=== PATIENT | female | born 1970 | race Hispanic/Latino ===

== ENCOUNTER 2020-05-17 19:44 | Emergency (ER) | payer OTHER ==
--- OUTSIDE RECORDS SUMMARY | 2020-05-17 19:47 | XMS REPORT | Continuity of Care Document ---
:1970 Author Organization [facility] t Address [address] [place] [place] [address] Care Team Providers Name Role Phone Lab, Fam Pob I Attending Clinician Unavailable Doctor Unassigned, Name Attending Clinician Unavailable Diana Jackson MD Attending Clinician Shannan TAYLOR Attending Clinician Lab, Covid Attending Clinician Unavailable Only, Test Attending Clinician Unavailable Problems This patient has no known problems. Allergies, Adverse Reactions, Alerts This patient has no known allergies or adverse reactions. Medications This patient has no known medications. Procedures This patient has no known procedures. Encounters Start End Encounter Admission Attending Care Care Encounter Source Date/Time Date/Time Type Type Clinicians Facility Department ID 2020-03-03 2020-03-03 Laboratory Lab, [facility] [id number] 17:22:47 17:42:47 Only Fam Pob I Health [id number] [place] [id number] Sebast[place]án [id number] nal [address] 2020-02-13 2020-02-13 Outpatient [facility] [id number] [facility] 2020-01-30 2020-01-30 Outpatient [facility] [id number] [facility] 2020-01-11 2020-01-11 [facility] [id number] [facility] 2020-01-11 2020-01-11 Orders Doctor LEONIDAS [id number] 00:00:00 00:00:00 Only Unassigned, KATIE [id number] [place] [facility] [id number] 2020-01-10 2020-01-10 Out[facility] [id number] [facility] 2019-12-27 2019-12-27 Out[facility] [id number] [facility] 2019-10-30 2019-10-[id number] 00:00:00 00:00:00 Management Sophy Jackson HEALTH [id number] [facility] [id number] 2019-10-25 2019-10-[address]840.114 [id number] 00:00:00 00:00:00 Sophy Jackson HEALTH [id number] [facility] [id number] 2019-10-15 2019-10-[address]840.114 [id number] 10:25:00 23:59:00 Encounter Sophy Jackson [facility]ALTH [id number] [facility] [id number] 2019-10-15 2019-10-15 [place] [id number] 08:12:00 10:24:00 Encounter Sophy Jackson HEALTH [id number] [facility] [id number] 2019-10-15 2019-10-15 [facility] [id number] 08:00:00 08:11:00 Encounter Y [facility] [id number] CLINICS [id number] 2019-10-13 2019-10-13 Telephone Lab, Pcp [facility] [id number] 00:00:00 00:00:00 Covid PRIMARY [id number] CARE [id number] [facility] [id number] 2019-10-11 2019-10-11 Laboratory Only, Adc [facility] [id number] 08:28:23 09:19:11 Only Test [place] [id number] [place] [id number] [place] [id number] Results This patient has no known results.
[2020-05-17] MEDS ORDERED: NA CHLORIDE 0.9% 2,000 ML ONE (20:25)
[2020-05-17] MEDS ORDERED: CEFTRIAXONE/SWI 1gm 1 GM/10 ML SYR ONE (20:25)
[2020-05-17 20:30] LABS: Basophils % 0.4 % (0-1.3); Hematocrit 37.8 % (36.0-45.0); Lymphocytes % 9.8 % (15.3-44.8); MPV 9.2 fL (7.6-11.3); RBC Red Blood Cell Count 4.96 M/uL (3.86-4.86)
[2020-05-17 20:32] LABS: Urine Blood 1+ (NEG); Urine Glucose NEGATIVE (NEG); Urine Protein NEGATIVE (NEG); Urine pH 5.5 (5.0-7.0)
[2020-05-17 20:53] LABS: ALT/SGPT 37 U/L (12-78); Albumin 3.9 g/dL (3.4-5.0); Alkaline Phosphatase 94 U/L (45-117); BUN Blood Urea Nitrogen 13 mg/dL (7-18); Bicarbonate 25 mmol/L (21-32); Bilirubin Direct < 0.1 mg/dL (0-0.2); Bilirubin Total 0.3 mg/dL (0.2-1.0); Glucose Level 173 mg/dL (74-106); Lipase 70 U/L (73-393); Sodium Level 140 mmol/L (136-145)
[2020-05-17 20:59] LABS: Blood Morphology Comment NOT SEEN (NOT SEEN); Platelet Estimate ADEQ
[2020-05-17 21:02] LABS: AST/SGOT 28 U/L (15-37); Potassium 3.7 mmol/L (3.5-5.1)
[2020-05-17] MEDS ORDERED: FAMOTIDINE 20 MG/2 ML VIAL IV ONE (21:47)
[2020-05-17] MEDS ORDERED: DIPHENHYDRAMINE 50 MG/ML VIAL ONE (21:47)
[2020-05-17] MEDS ORDERED: METHYLPREDNISOLONE 125 MG INJ ONE (21:47)
[2020-05-17] MEDS ORDERED: ACETAMINOPHEN 500 MG TAB ONE (22:04)
[2020-05-17] MEDS ORDERED: IBUPROFEN 400 MG TAB ONE (22:04)
--- NOTE | 2020-05-17 23:18 | ER ---
Nurse's Notes [facility] Name: Pipe Aleman Age: 49 yrs Sex: Female : 1970 Arrival Date: 05/17/2020 Time: 19:49 Bed 15 Private MD: Diagnosis: Enteritis;Infectious mononucleosis Presentation: 05/17 20:02 Chief complaint: Patient's son or daughter states: she has lower abdominal pain and mg2 painful urination started today \T\ 5 pm. none taken for fever. Coronavirus screen: Client denies travel out of the [place] in the last 14 days. Ebola Screen: No symptoms or risks identified at this time. Initial Sepsis Screen: Does the patient meet any 2 criteria? Temp <36.0*C (96.8*F)) or > 38.3*C (100.9*F). HR > 90 bpm. Does the patient have a suspected source of infection? Yes: Dysuria/Frequency/Urgency/UTI. Risk Assessment: Do you want to hurt yourself or someone else? Patient reports no desire to harm self or others. Onset of symptoms was May 17, 2020. 20:02 Method Of Arrival: Ambulatory mg2 20:02 Acuity: CHRIST 3 mg2 Historical: - Allergies: 20:05 No Known Allergies; mg2 - Home Meds: 20:05 bp medicine [Active]; mg2 - PMHx: 20:05 Hypertension; mg2 - PSHx: 20:05 ; mg2 - Immunization history:: Flu vaccine status is unknown. covid vaccine done. - Social history:: Smoking status: Patient denies any tobacco usage or history of. Screenin:05 Abuse screen: Denies threats or abuse. Denies injuries from another. Nutritional mg2 screening: No deficits noted. Tuberculosis screening: No symptoms or risk factors identified. Assessment: 20:00 General: code sepsis called. mg2 20:00 General: Appears in no apparent distress. Behavior is calm, cooperative, appropriate ll2 for age. Pain: Complains of pain in back. Neuro: Level of Consciousness is awake, alert, obeys commands, Oriented to person, place, time, situation. Cardiovascular: Patient's skin is warm and dry. Respiratory: Airway is patent Respiratory effort is even, unlabored, Respiratory pattern is regular, symmetrical. GI: Bowel sounds Abd is soft. : Reports urinary frequency. EENT: No signs and/or symptoms were reported regarding the EENT system. Derm: Skin is intact, is healthy with good turgor, Skin is dry, Skin is pink, warm \T\ dry. Musculoskeletal: Circulation, motion, and sensation intact. Range of motion: intact in all extremities. 21:00 Reassessment: Patient and/or family updated on plan of care and expected duration. Pain ll2 level reassessed. Patient is alert, oriented x 3, equal unlabored respirations, skin warm/dry/pink. 22:00 Reassessment: Patient and/or family updated on plan of care and expected duration. Pain ll2 level reassessed. Patient is alert, oriented x 3, equal unlabored respirations, skin warm/dry/pink. Vital Signs: 20:00 BP 138 / 85; Pulse 155; Resp 20; Temp 103.2; Pulse Ox 100% on R/A; ll2 20:02 BP 138 / 85; Pulse 150; Resp 18; Temp 102.7; Pulse Ox 100% on R/A; Weight 72.12 kg; mg2 Height 5 ft. 1 in. (154.94 cm); Pain 6/10; 21:00 BP 140 / 69; Pulse 151; Resp 22; Pulse Ox 100% on R/A; ll2 22:00 BP 136 / 77; Pulse 120; Resp 18; Temp 100.8; Pulse Ox 100% on R/A; ll2 20:02 Body Mass Index 30.04 (72.12 kg, 154.94 cm) mg2 ED Course: 19:49 Patient arrived in ED. cf2 19:51 Mohit Magana PA is PHCP. [facility] 19:52 Brendon Singleton MD is Attending Physician. jmm 20:04 Triage completed. mg2 20:05 Arm band placed on. mg2 20:05 Inserted saline lock: 20 gauge in left forearm, using aseptic technique. Blood mg2 collected. 20:28 Patient has correct armband on for positive identification. mg2 20:28 No provider procedures requiring assistance completed. mg2 21:32 Notified Nurse Practitioner and/or Physician Tint Layer of a critical lab result(s), lp1 Lactate 3.3. 21:43 Ana Maria Burns RN is Primary Nurse. ll2 21:52 Urine Dipstick--Ancillary (enter results) Sent. ll2 21:52 Flu Sent. ll2 21:53 Strep Sent. ll2 21:54 [place] Screen Profile Sent. ll2 22:22 CT Chest, Abdomen, Pelvis - W/Contrast In Process Unspecified. EDMS 23:29 IV discontinued, intact, bleeding controlled, No redness/swelling at site. Pressure ll2 dressing applied. Administered Medications: 20:05 Drug: NS 0.9% (30 ml/kg) 30 ml/kg Route: IV; Rate: bolus; Site: left forearm; mg2 20:28 Drug: Rocephin 1 grams Route: IV; Rate: calculated rate; Site: left forearm; mg2 21:43 Drug: diphenhydrAMINE 50 mg Route: IVP; Site: left antecubital; ll2 21:43 Drug: Pepcid 20 mg Route: IVP; Site: left antecubital; ll2 21:44 Drug: SOLU-Medrol 125 mg Route: IVP; Site: left antecubital; ll2 21:45 Drug: Tylenol 1000 mg Route: PO; ll2 21:45 Drug: Motrin 400 mg Route: PO; ll2 Outcome: 23:17 Discharge ordered by MD. tricia 23:28 Discharged to home ambulatory. ll2 23:28 Condition: stable 23:28 Discharge instructions given to patient, Instructed on discharge instructions, follow up and referral plans. medication usage, Demonstrated understanding of instructions, follow-up care, medications, Prescriptions given X 1. 23:29 Patient left the ED. ll2 Addendum: 05/21/2020 16:40 Addendum: Culture Results: Positive urine culture. Pt was notified of positive culture a a5 [id number], pt to follow-up with PCP and GI doctor. Patient was not prescribed antibiotics at discharge. Report given to BEVERLY for further evaluation and then to barker operator for follow up with patient. Signatures: Dispatcher [employer] EDMS Mohit Magana PA PA jmm Calderon, Audri, RN RN aa5 Iris Mcclure RN RN lp1 Handy Murguia RN RN mg2 Jeffrey Harrison cf2 Ana Maria Burns RN RN ll2
--- NOTE | 2020-05-17 23:18 | EDPHYS ---
Physician Documentation [facility] Name: Pipe Aleman Age: 49 yrs Sex: Female : 1970 Arrival Date: 05/17/2020 Time: 19:49 Bed 15 Private MD: ED Physician Brendon Singleton HPI: 05/17 20:08 This 49 yrs old Female presents to ER via Ambulatory with complaints of jmm Abdominal Pain, Pain With Urination. 20:08 The patient presents with abdominal pain in the lower abdomen. Onset: The jmm symptoms/episode began/occurred today. The symptoms do not radiate. Associated signs and symptoms: Pertinent positives: dysuria, fever, Pertinent negatives: nausea and vomiting. The symptoms are described as achy. Modifying factors: The symptoms are alleviated by nothing, the symptoms are aggravated by nothing. This is a 49 year old female with a history fo htn that presents to the ED with complaints of suprapubic abdominal pain beginning today around 5 pm along with dysuria. . Historical: - Allergies: 20:05 No Known Allergies; mg2 - Home Meds: 20:05 bp medicine [Active]; mg2 - PMHx: 20:05 Hypertension; mg2 - PSHx: 20:05 ; mg2 - Immunization history:: Flu vaccine status is unknown. covid vaccine done. - Social history:: Smoking status: Patient denies any tobacco usage or history of. ROS: 20:08 Constitutional: Positive for body aches, fatigue, fever. jmm 20:08 Abdomen/GI: Positive for abdominal pain. 20:08 Back: Positive for flank pain, on the right. 20:08 All other systems are negative. Exam: 20:08 Constitutional: This is a well developed, well nourished patient who is awake, alert, jmm and in no acute distress. Head/Face: atraumatic. Eyes: EOMI, no conjunctival erythema appreciated ENT: Moist Mucus Membranes Neck: Trachea midline, Supple Chest/axilla: Normal chest wall appearance and motion. Cardiovascular: Regular rate and rhythm. No edema appreciated Respiratory: Normal respirations, no respiratory distress appreciated Abdomen/GI: Non distended, soft Back: Normal ROM Skin: General appearance color normal MS/ Extremity: Moves all extremities, no obvious deformities appreciated, no edema noted to the lower extremities Neuro: Awake and alert, normal gait Psych: Behavior is normal, Mood is normal, Patient is cooperative and pleasant Vital Signs: 20:00 BP 138 / 85; Pulse 155; Resp 20; Temp 103.2; Pulse Ox 100% on R/A; ll2 20:02 BP 138 / 85; Pulse 150; Resp 18; Temp 102.7; Pulse Ox 100% on R/A; Weight 72.12 kg; mg2 Height 5 ft. 1 in. (154.94 cm); Pain 6/10; 21:00 BP 140 / 69; Pulse 151; Resp 22; Pulse Ox 100% on R/A; ll2 22:00 BP 136 / 77; Pulse 120; Resp 18; Temp 100.8; Pulse Ox 100% on R/A; ll2 20:02 Body Mass Index 30.04 (72.12 kg, 154.94 cm) mg2 MDM: 20:07 Patient medically screened. [facility] 23:14 Data reviewed: vital signs, nurses notes. Counseling: I had a detailed discussion with tricia the patient and/or guardian regarding: the historical points, exam findings, and any diagnostic results supporting the discharge/admit diagnosis, lab results, radiology results, the need for outpatient follow up, to return to the emergency department if symptoms worsen or persist or if there are any questions or concerns that arise at home. Refusal of service: The patient/guardian displays adequate decision making capability and despite a detailed discussion of alternatives, benefits, risks, and consequences refuses: Admission to the hospital for further work-up and treatment. 05/17 20:03 Order name: Basic Metabolic Panel; Complete Time: 21:17 [facility] 05/17 20:03 Order name: CBC with Diff; Complete Time: 21:17 [facility] 05/17 20:03 Order name: Hepatic Function; Complete Time: 21:17 [facility] 05/17 20:03 Order name: Lipase; Complete Time: 21:17 [facility] 05/17 20:03 Order name: Blood Culture Adult (2) [facility] 05/17 20:04 Order name: Urine Culture [facility] 05/17 20:04 Order name: Urine Culture [facility] 05/17 20:28 Order name: Urine --Ancillary (enter results) [facility] 05/17 20:28 Order name: Urine Dipstick--Ancillary (enter results) tt 05/17 20:28 Order name: Urine --Ancillary; Complete Time: 20:34 [facility] 05/17 20:28 Order name: Urine Dipstick-Ancillary; Complete Time: 20:34 [facility] 05/17 20:31 Order name: Flu [facility] 05/17 20:31 Order name: Strep [facility] 05/17 20:31 Order name: CT Chest, Abdomen, Pelvis - W/Contrast [facility] 05/17 20:31 Order name: [place] Screen Profile [facility] 05/17 20:31 Order name: Procalcitonin; Complete Time: 21:17 [facility] 05/17 20:31 Order name: Lactate; Complete Time: 21:33 [facility] 05/17 20:32 Order name: Group A Streptococcus Rapid Sc; Complete Time: 22:07 [facility] 05/17 20:32 Order name: [place] Screen; Complete Time: 20:50 [facility] 05/17 20:34 Order name: Manual Differential; Complete Time: 21:17 [facility] 05/17 22:00 Order name: Throat Culture [facility] 05/17 20:03 Order name: IV Saline Lock; Complete Time: 20:28 [facility] 05/17 20:03 Order name: Labs collected and sent; Complete Time: 20:28 [facility] 05/17 20:04 Order name: Urine Dipstick-Ancillary (obtain specimen); Complete Time: 20:27 [facility] Administered Medications: 20:05 Drug: NS 0.9% (30 ml/kg) 30 ml/kg Route: IV; Rate: bolus; Site: left forearm; mg2 20:28 Drug: Rocephin 1 grams Route: IV; Rate: calculated rate; Site: left forearm; mg2 21:43 Drug: diphenhydrAMINE 50 mg Route: IVP; Site: left antecubital; ll2 21:43 Drug: Pepcid 20 mg Route: IVP; Site: left antecubital; ll2 21:44 Drug: SOLU-Medrol 125 mg Route: IVP; Site: left antecubital; ll2 21:45 Drug: Tylenol 1000 mg Route: PO; ll2 21:45 Drug: Motrin 400 mg Route: PO; ll2 Disposition: 05/18 06:53 Co-signature as Attending Physician, Brendon Singleton MD. [email or web address] Disposition: 05/17/20 23:17 Discharged to Home. Impression: Enteritis, Infectious mononucleosis. - Condition is Stable. - Discharge Instructions: Infectious Mononucleosis, Viral Gastroenteritis, Adult. - Prescriptions for Bentyl 20 mg Oral Tablet - take 2 tablet by ORAL route every 6 hours As needed; 40 tablet. - Medication Reconciliation Form, Thank You Letter, Antibiotic Education, Prescription Opioid Use form. - Follow up: Private Physician; When: 2 - 3 days; Reason: Recheck today's complaints, Continuance of care, Re-evaluation by your physician. Signatures: Dispatcher [employer] EDIN Mohit Magana PA PA jmm Gardose, Michele, RN RN mg2 Ana Maria Burns RN RN ll2 Brendon Singleton MD MD [email or web address] Corrections: (The following items were deleted from the chart) 05/17 22:49 20:32 Influenza Screen (A ordered. [facility] EDIN 22:50 20:32 CORONAVIRUS ordered. [facility] 23:29 23:17 05/17/2020 23:17 Discharged to Home. Impression: Enteritis; Infectious ll2 mononucleosis. Condition is Stable. Forms are Medication Reconciliation Form, Thank You Letter, Antibiotic Education, Prescription Opioid Use. Follow up: Private Physician; When: 2 - 3 days; Reason: Recheck today's complaints, Continuance of care, Re-evaluation by your physician. tricia
[2020-05-17 23:33] VITALS: O2SAT 100
[2020-05-17 23:38] VITALS: BP 136/77; TEMP 100.8
[2020-05-17 23:39] LABS: SARS-COV-2 RT PCR NEGATIVE (NEGATIVE)
--- NOTE | 2020-05-18 20:50 | RAD REPORT ---
EXAM DESCRIPTION: CT - Chest Abdomen Pelvis W Cont - 05/18/2020 6:05 am CLINICAL HISTORY: Fever, upper back pain, lower abdominal pain COMPARISON: None. TECHNIQUE: CT CHEST ABDOMEN PELVIS WITH IV CONTRAST on 05/17/2020 8:31 PM HEALTH CONSULTANT. MIPS reconstructions w ere generated. This exam was performed according to our departmental dose-optimization program, which includes autom ated exposure control, adjustment of the mA and/or kV according to patient size and/or use of iterati ve reconstruction technique. FINDINGS: Vascular: Thoracic aorta is normal in course and caliber without aneurysm or dissection. P ulmonary arteries are adequately opacified without acute or chronic filling defects. Abdominal aorta is normal in course and caliber without aneurysm. Pelvic arteries are patent without aneurysm or occl usion. Chest: The heart is normal in size. There is no pericardial effusion. Intrathoracic lymph nodes are n ot enlarged. There is no pleural effusion, pleural thickening or pneumothorax. Central airways are patent. There i s a partially calcified peripheral left upper lobe mass measuring 3.3 x 3.5 cm. The left lung, especi ally the left lower lobe hyperinflated with multiple tiny tree-in-bud nodules present. This extends f or a craniocaudal length of 6.4 cm. Abdomen: The liver is normal in appearance. There is no biliary dilatation. Cholecystectomy was perfo rmed. The pancreas and spleen are normal in appearance. The adrenal glands and kidneys are unremarkab le. There is no free air. There is no retroperitoneal adenopathy. Pelvis: There is moderate diverticulosis of the sigmoid colon. There is large amount of stool through out the colon. There are several slightly prominent fluid-filled small bowel loops in the lower abdom en and pelvis. Urinary bladder is unremarkable. There is no free fluid. Uterus is normal in size. Roman endix is normal. Skeleton: There are no acute osseous findings. No suspicious bony lesions. IMPRESSION: Nonspecific lower pelvic presumed small bowel enteritis. 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 CT. No definite acute posttraumatic findings. Electronically signed by: Demarco Cameron MD 05/17/2020 10:46 PM HEALTH CONSULTANT Due to temporary technical issues with the PACS/Fluency reporting system, reports are being signed b y the in house radiologists without review as a courtesy to insure prompt reporting. The interpreting radiologist is fully responsible for the content of the report.
== END 2020-05-17 23:29 | disposition home or self-care (01) ==
LOC: ER 19:44
DX: K52.9 Noninfective gastroenteritis and colitis, unspecified (principal); B27.90 Infectious mononucleosis, unspecified without complication; Z20.822 Contact with and (suspected) exposure to COVID-19; I10 Essential (primary) hypertension
CPT/HCPCS: 87040 ×2; 87070; 87088; 85025; 87086; 80048; 36415; 86308; 81025; 80076; 87081; 83605; 81003; 83690; 84145; 0240U; 71260; 74177; 99284; Q9967; J0696; J7030; J2930; 87077; 87186; J1200